=== PATIENT | female | born 1980 | race Caucasian/White ===

== ENCOUNTER 2018-07-26 06:55 | Day surgery (SDC) | payer OTHER ==
[~2018-07-26] VITALS: Ht 160 cm; Wt 88.0 kg
[2018-07-26 07:09] VITALS: BP 148/96
[2018-07-26 11:51] VITALS: BP 136/88
== END 2018-07-26 11:55 | disposition home or self-care (01) ==
LOC: DS 06:55 → OR 08:30 → DS 08:30 → OR 09:45 → DS 11:55
PROVIDERS: Obstetrics & Gynecology
PROC: 0UB70ZZ Excision of Bilateral Fallopian Tubes, Open Approach (ICD-10-PCS; principal; 2018-07-26 08:30)
DX: Z30.09 Encounter for other general counseling and advice on contraception (principal)
CPT/HCPCS: C1758; J0690; J1170; J2250; J2405; J2704; J3010; J3490; J7120